=== PATIENT | male | born 1950 | race Caucasian/White ===

== ENCOUNTER → 2025-07-02 06:29 | Outpatient (REF) | payer OTHER, SELFPAY | LOC: RSP 06:29 | PROVIDERS: ATTENDING PHYSICIAN Nurse Practitioner Adult Health | DX: R05.8 Other specified cough (principal) | CPT/HCPCS: 88738; 94010; 94727; 94729 ==

== ENCOUNTER 2025-07-05 09:20 | Emergency (ER) | payer OTHER, SELFPAY ==
[2025-07-05 09:24] VITALS: BP 156/92
--- NOTE | 2025-07-05 10:11 | ED.GENMED ---
History of Present Illness
General
Chief Complaint: Cough
Source: patient and spouse
Exam Limitations: none
Time Seen by Provider: 07/05/25 09:55
History of Present Illness
History of Present Illness:
See MDM
Past History
Past History
ED Past Medical History: Other (OA)
ED Past Surgical History: Orthopedic; Negative Appendectomy, Bowel resection, Cardiac or Cholecystectomy
Social History
Tobacco: Non-smoker
Alcohol: None
Drug: None
Personal:
Living: with family
Employment: Employed
Family History
Family History: Other (Noncontributory)
Phy Exam
Physical Exam
Physical Exam:
See MDM
Course
Orders/Labs/Results
Orders:
Orders
07/05/25 10:14
CT Chest With Iv Contrast Urgent
Comment:
Reason For Exam: persistent cough and sob
07/05/25 10:17
Complete Blood Count/With Diff Urgent
Comprehensive Metabolic Panel Urgent
07/05/25 13:27
Prednisone [Deltasone] 20 mg PO NOW STA
Abnormal Lab Results
07/05/25
10:17
RBC 4.18 L 10^6/uL
(4.70-6.10)
Hct 38.6 L %
(39.0-52.0)
MCH 32.1 H pg
(27.0-31.0)
Monocytes % 10.6 H %
(1.7-9.3)
Eosinophils % 8.6 H %
(0-6)
07/05/25 10:17
07/05/25 10:17
Vital Signs
Initial and Last Documented VS:
Initial Vital Signs
Temp Pulse Resp BP Pulse Ox
98.5 F 78 18 156/92 96
07/05/25 09:24 07/05/25 09:24 07/05/25 09:24 07/05/25 09:24 07/05/25 09:24
Last Documented Vital Signs
Temp Pulse Resp BP Pulse Ox
98.5 F 65 16 132/83 97
07/05/25 09:24 07/05/25 13:00 07/05/25 13:00 07/05/25 13:00 07/05/25 13:00
MDM/Problems Addressed
Differential Diagnosis Includes:
Note:
CHIEF COMPLAINT(S)
Cough
HISTORY OF PRESENT ILLNESS
The patient is a 75-year-old male with a history of allergies, presenting with a persistent cough. The cough began in May and initially responded to prednisone. However, the cough returned and persisted through June. The patient reports
coughing fits which sometimes last up to three hours. The cough is described as being accompanied by a feeling of the throat closing and bubbling sounds in the chest. The patient has a history of allergies throughout his life but states that he has
never experienced symptoms to this degree. He reports having wheezing noticed more on exhalation. The patient also notes attempts to use inhalers and cough medicine without significant relief.
The patient underwent pulmonary function tests recently, which reportedly showed nothing significant for his age. He is scheduled to see a department coordinator next Tuesday. The patient has had various blood tests done showing some abnormalities; however,
specific tests and results were not mentioned. Pt states they have something to do with allergy testing.
Of note, the patient quit smoking 50 years ago and is currently physically active, riding a bicycle for exercise.
EXTERNAL RECORDS REVIEWED
The patient mentioned pulmonary function tests that he had recently, though no specific results were provided.
CHRONIC MEDICAL CONDITIONS SIGNIFICANTLY AFFECTING CARE
Chronic conditions affecting care: Allergies.
SOCIAL DETERMINANTS AFFECTING HEALTH
No specific social determinants were discussed.
PHYSICAL EXAM
Nursing notes reviewed and vital signs reviewed.
- Respiratory: Lungs auscultated; breath sounds were clear.
PLAN
A chest CT scan is recommended to rule out any significant findings that may have been missed on the chest X-ray and address concerns about persistent cough.
DIFFERENTIAL DIAGNOSIS
The Differential Diagnosis includes, in no particular order and is not limited to:
- Chronic bronchitis
- Asthma
- Allergic rhinitis
- Gastroesophageal reflux disease (GERD)
- Post-nasal drip
- Upper respiratory tract infection
- Interstitial lung disease
- Reactive airway disease
- Angiotensin-converting enzyme (AUGIE) inhibitor side effect
- Lung neoplasm
SUMMARY OF ENCOUNTER
The patient presented with a persistent cough and associated symptoms of throat tightening and bubbling in the chest. Despite various treatments, including steroids and inhalers, symptoms have persisted. A chest CT scan is suggested to further
investigate the etiology of the cough and to ensure no significant secondary causes are overlooked.
DISPOSITION
The patient was advised on further diagnostic evaluation and management with a planned chest CT scan.
MEDICATION RECONCILIATION
The patient was previously on prednisone and currently uses inhalers and Tussionex (chlorpheniramine and hydrocodone).
MEDICAL DECISION MAKING
-Complexity of Data Reviewed: Chronic conditions affecting care: Allergies. The Differential Diagnosis includes, in no particular order and is not limited to chronic bronchitis, asthma, allergic rhinitis, GERD, post-nasal drip, upper respiratory
tract infection, interstitial lung disease, reactive airway disease, AUGIE inhibitor side effect, lung neoplasm.
-Data:
Category 1
Non-emergency department records reviewed, if applicable. External record reviewed: The patient mentioned pulmonary function tests that he had recently, though no specific results were provided.
Category 2
Clinical information obtained from the patient.
Category 3
Discussion of management included considering a chest CT scan to address persistent symptoms and rule out significant underlying conditions.
-Risk:
Consideration of serious underlying pathology due to persistent cough being addressed with further imaging tests.
DIAGNOSIS
Cough, R05
Allergic rhinitis, J30.9
SUMMARY OF ENCOUNTER
The patient, a 75-year-old male, presented with a persistent cough and frequent coughing spells, unresponsive to previous use of antibiotics and albuterol. A CT scan was ordered to investigate possible bronchitis or lung cancer, although there was
no evidence of pneumonia. During the visit, the patient was informed of the incidental finding of a kidney stone. An inhaled corticosteroid, Advair (fluticasone and salmeterol), was initiated, and a short course of prednisone was prescribed due to
its effectiveness in previous episodes. The patient has a follow-up appointment with pulmonology scheduled next week.
PLAN
Initiate Advair as an inhaled steroid regimen. Prescribe a short course of prednisone given its past efficacy. Encourage patient to attend the upcoming consultation with the department coordinator for further evaluation and management.
INDEPENDENT REVIEW OF LABS AND INTERPRETATION OF TESTS
My independent interpretation of the CT scan reveals no evidence of pneumonia, but notes the presence of a kidney stone. No signs consistent with bronchitis or lung cancer were found.
MEDICATION RECONCILIATION
- Advair (fluticasone and salmeterol) inhalation aerosol was initiated.
- Prednisone tablets were prescribed for short-term use.
MEDICAL DECISION MAKING
-Complexity of Data Reviewed: Chronic conditions affecting care: Allergies. Differential diagnosis includes chronic bronchitis, asthma, allergic rhinitis, GERD, post-nasal drip, upper respiratory tract infection, interstitial lung disease, reactive
airway disease, AUGIE inhibitor side effect, lung neoplasm.
-Data:
Category 1
Non-emergency department records reviewed: The patient had recent pulmonary function tests, though specific results were not available.
Category 3
Discussion of management with pulmonology is planned, given the chronic nature of symptoms and pending specialized evaluation.
-Risk:
Prescription medication was prescribed, including an inhaled steroid (Advair) and prednisone. The decision to pursue CT imaging considered risks but prioritized ruling out serious pathology such as lung neoplasm.
DIAGNOSIS
- Cough, R05
- Allergic rhinitis, J30.9
- Kidney stone (incidental finding, unspecified), N20.9
*Pulse Oximetry
SaO2: 96
Oxygen Mode of Delivery: Room air
Patient hypoxic: no
*Critical Care Note
Total Time (30-74mins, 75-104mins- exclusive of procedures): Not Applicable
ED Attending Note
-
Portions of this chart may have been created with voice recognition software.� Occasional wrong word or��sound alike� substitutions may have occurred due to the inherent limitations of voice recognition software.
Discharge Plan
Departure
Patient Disposition: Home (Routine Discharge)
Date of Disposition: 07/05/25
Time of Disposition: 13:28
Patient with high blood pressure during this ER visit?: No
Discharge Problem:
Cough
Instructions: Cough, Adult (DC)
Prescriptions:
New
prednisone 20 mg tablet
20 mg PO DAILY Qty: 5 0RF
fluticasone propion-salmeterol [Advair Diskus] 250-50 mcg/dose blister with device
1 inh inhalation BID Qty: 60 0RF
No Action
ondansetron 4 MG tablet,disintegrating
4 mg PO TIDPRN PRN (Reason: nausea/vomiting) Qty: 14 0RF
dicyclomine 10 MG capsule
10 mg PO QIDPRN PRN (Reason: spasm) Qty: 12 0RF
Referrals:
Letty Jefferson CRNP [Family Provider, General]
Activity Restrictions/Additional Instructions:
Please return for any worsening symptoms.
You may return at any time if you have further concerns.
Please follow up with your doctor at the first available appointment, preferably this week.
Please keep your pulmonology appointment.
Thank you for choosing [facility].
Interventions
Interventions:
*Risk Screen - Suicide Last Done: 07/05/25 09:24
*General Assessment Last Done: 07/05/25 09:24
*Neglect/Abuse Screening Last Done: 07/05/25 09:24
*ED COVID-19 Vaccine History Last Done: 07/05/25 09:24
*ED Influenza Vaccine History Last Done: 07/05/25 09:24
[facility] Risk Assessment Tool Last Done: 07/05/25 10:00
ED- Pulmonary Assessment Last Done: 07/05/25 10:00
Discharge Date and Time
Print Language: MOLDOVAN
[2025-07-05 10:27] VITALS: BP 143/89
[2025-07-05 10:36] LABS: Hematocrit 38.6 % (39.0-52.0); Hemoglobin 13.4 g/dL (13.0-18.0); Mean Corp Hgb Conc. 34.7 g/dL (33.0-37.0); Mean Corpuscular Volume 92.3 fL (80.0-94.0); Nucleated Red Blood Cells % 0 % (-); Platelet Count 193 10^3/uL (130-400); Red Cell Dist. Width 12.6 % (11.5-14.5)
[2025-07-05 10:57] LABS: ALT (SGPT) 20 U/L (0-50); AST (SGOT) 26 U/L (17-59); Albumin 4.3 g/dl (3.5-5.0); Alkaline Phosphatase 65 U/L (38-126); Blood Urea Nitrogen 15 mg/dl (9-20); Calcium 9.3 mg/dl (8.4-10.2); Carbon Dioxide 30 mmol/L (22-30); Chloride 105 mmol/L (98-107); Glucose 97 mg/dl (70-99); Potassium 4.1 mmol/L (3.5-5.1); Sodium 138 mmol/L (135-145); Total Protein 7.0 g/dl (6.3-8.2); eGFR > 60.00
[2025-07-05 11:00] VITALS: BP 144/89
[2025-07-05 12:00] VITALS: BP 136/79
[2025-07-05 13:00] VITALS: BP 132/83
[2025-07-05] MEDS: DELTASONE 20 MG PO (13:43)
== END 2025-07-05 14:04 | disposition home or self-care (01) ==
LOC: EMR 09:20
PROVIDERS: EMERGENCY PHYSICIAN Student in an Organized Health Care Education/Training Program; FAMILY PHYSICIAN Nurse Practitioner Adult Health
DX: R05.9 Cough, unspecified (principal); J30.9 Allergic rhinitis, unspecified; Z90.49 Acquired absence of other specified parts of digestive tract; N20.0 Calculus of kidney
CPT/HCPCS: 99284; 71260; 80053; 85025; Q9967